=== PATIENT | female | born 1980 | race Caucasian/White ===

== ENCOUNTER → 2017-05-22 | Outpatient (CLI) | payer BC | END | disposition home or self-care (01) | LOC: AMB 05-05 12:00 | PROC: 0DJ08ZZ Inspection of Upper Intestinal Tract, Via Natural or Artificial Opening Endoscopic (ICD-10-PCS; principal; 2017-05-22) | DX: K21.9 Gastro-esophageal reflux disease without esophagitis (principal) | CPT/HCPCS: J2250 ==

== ENCOUNTER 2017-06-11 21:34 | Inpatient (IN) | payer BC ==
[~2017-06-11] VITALS: Ht 162.6 cm; Wt 107.7 kg
[~2017-06-11 21:34] MED LIST: WOMEN'S DAILY1 EAC4 PO
[2017-06-12 14:26] VITALS: BP 129/83
[2017-06-12 19:36] VITALS: BP 140/95
[2017-06-13 00:08] VITALS: BP 109/55
[2017-06-13 04:19] VITALS: BP 128/59
[2017-06-13 07:21] VITALS: BP 141/90
[2017-06-13 08:02] LABS: HEMATOCRIT 33.4 % (36.0-46.0); MCH 27.8 PG (29.0-34.0); MCHC 34.4 G/DL (30.0-36.0); MCV 80.9 FL (83-99); MEAN PLAT.VOLUME 11.1 uM^3 (9.5-12.4); PLATELET COUNT 293 K/uL (156-360); RBC DIS.WIDTH-CV 13.2 % (11.8-14.6); RBC DIS.WIDTH-SD 38.3 % (39-53); RED BLOOD COUNT 4.13 M/uL (3.80-5.20); WHITE BLOOD COUNT 17.7 K/uL (4.1-10.2)
[2017-06-13 08:31] LABS: ANION GAP 8 MEQ/L (2-14); CHLORIDE 101 MEQ/L (99-109); GFR ESTIMATE (CALCULATED) > 59 mL/min/; GLUCOSE 108 mg/dL (70-99); MAGNESIUM 1.6 mg/dl (1.3-2.7); POTASSIUM 4.5 MEQ/L (3.7-5.4); SAMPLE HEMOLYSIS CHECK 0; SAMPLE ICTERIC CHECK 0; SAMPLE LIPEMIA CHECK 0; SODIUM 133 MEQ/L (136-147); UREA NITROGEN (BUN) 7 mg/dL (9-23)
[2017-06-13] MEDS ORDERED: HYDROCODON-ACE1 EAC7 PO (10:35)
[2017-06-13 11:24] VITALS: BP 135/91
== END 2017-06-13 13:28 | disposition home or self-care (01) | DRG 621 ==
LOC: ENRESERV 21:34 → 2SOUTH 06-12 08:46 → ENRESERV 06-12 13:05 → 2EAST 06-12 14:30 → 2SOUTH 06-12 14:56 → 2EAST 06-13 13:28
PROVIDERS: Physician Assistant
PROC: 0DB64Z3 Excision of Stomach, Percutaneous Endoscopic Approach, Vertical (ICD-10-PCS; principal; 2017-06-12)
DX: E66.01 Morbid (severe) obesity due to excess calories (principal); F32.9 Major depressive disorder, single episode, unspecified; Z87.442 Personal history of urinary calculi; K21.9 Gastro-esophageal reflux disease without esophagitis; Z82.49 Family history of ischemic heart disease and other diseases of the circulatory system; Z68.41 Body mass index [BMI] 40.0-44.9, adult
CPT/HCPCS: 80048; 83735; 84100; 85027; C9113; J0131; J0690; J1100; J1170; J1644; J1650; J1885; J2250; J2405; J2710; J2765; J3010; J3480; J7120; S0020